=== PATIENT | male | born 1970 | race Two or more races ===

== ENCOUNTER 2017-02-23 15:09 | Emergency (ER) | payer OTHER ==
[~2017-02-23] VITALS: Ht 172.7 cm; Wt 70.3 kg
--- NOTE | 2017-02-23 16:00 | NUR ---
PATIENT BIB [facility], R/O TB. MD MADE AWARE. PATIENT VENT/TRACH. VITALS STABLE, NO SOB. AWAITING MD ORDERS.
--- NOTE | 2017-02-23 16:23 | NUR ---
CALLED [facility] FOR TRANSPORT BACK TO [facility], SPOKE WITH DELIA, SAID HE WILL CALL ME BACK WITH ETA
--- NOTE | 2017-02-23 16:25 | NUR ---
[facility] ETA [phone]
[2017-02-23 17:39] VITALS: BP 119/52
--- NOTE | 2017-02-23 17:54 | NUR ---
PATIENT CLEARED FOR DISCHARGE BACK TO SNF. EMT AT BEDSIDE, REPORT GIVEN. PATIENT REMAINS STABLE. PATIENT LEFT VIA STRETCHER.
== END 2017-02-23 17:42 ==
LOC: ER 15:10
DX: J18.9 Pneumonia, unspecified organism (principal); I11.0 Hypertensive heart disease with heart failure; I50.9 Heart failure, unspecified; E11.9 Type 2 diabetes mellitus without complications; K21.9 Gastro-esophageal reflux disease without esophagitis; F19.10 Other psychoactive substance abuse, uncomplicated
CPT/HCPCS: 71010-TC; A4606; Z7610